=== PATIENT | male | born 1980 | race African-American/Black ===

== ENCOUNTER 2020-11-16 14:12 | Emergency (ER) | payer MEDICAID ==
[~2020-11-16] VITALS: Ht 182.9 cm; Wt 78.0 kg
[2020-11-16] MEDS ORDERED: ACETAMINOPHEN 325MG TABLET PO ONE (15:45)
[2020-11-16] MEDS ORDERED: VISCOUS LIDOCAINE 2% 15 ML UDC MM STA (15:53)
[2020-11-16] MEDS ORDERED: CLINDAMYCIN HCL 150MG CAPSULE PO STA (15:53)
[2020-11-16] MEDS ORDERED: DEXAMETHASONE 2MG TABLET PO ONE (16:30)
[2020-11-16 16:52] LABS: HEMATOCRIT. 42.9 % (42.0-52.0); HEMOGLOBIN. 14.6 g/dL (14.0-18.0); MEAN CORPUSCULAR HEMOGLOBIN 31.5 pg (28.0-32.0); MEAN CORPUSCULAR VOLUME 92.1 fL (80.0-94.0); MEAN PLATELET VOLUME 7.1 fl (7.4-10.4); PLATELET 238 x1000/uL (130-400); RED BLOOD CELL COUNT 4.65 mill/uL (4.7-6.1)
[2020-11-16 16:54] LABS: CHLORIDE 107 mEq/L (98-107)
[2020-11-16 17:07] LABS: PLATELET ESTIMATE NORMAL
[2020-11-16] MEDS ORDERED: CLIN300C12 MT (19:58)
[2020-11-16] MEDS ORDERED: KETOROLAC 60MG/2ML VIAL IM ONE (22:15)
[2020-11-17] MEDS ORDERED: IBUP-2029 MT (01:48)
[2020-11-17 01:56] VITALS: BP 109/67
== END 2020-11-17 01:57 | disposition home or self-care (01) ==
LOC: ER 14:12
DX: J02.0 Streptococcal pharyngitis (principal); R68.84 Jaw pain; R25.2 Cramp and spasm
CPT/HCPCS: 10060; 36415; 70491; 80048; 85025; 87070; 87430; 96372; 99285; J1885; J8540